=== PATIENT | male | born 1960 | race Hispanic/Latino ===

== ENCOUNTER 2021-06-16 06:35 | Day surgery (SDC) | payer OTHER ==
[~2021-06-16 06:35] MED LIST: ASPIRIN LOW81 M1 PO; FARXIGA5 MG PO; FISH OIL1000 MG PO; JARDIANCE10 MG PO; LISINOPRIL5 MG PO; METFORMIN500 M2 PO; VITAMIN D31000 UNI1 PO
[2021-06-16 10:13] VITALS: BP 140/78
[2021-07-17] MEDS ORDERED: VITAMIN D325 MCG (13:31)
[2021-07-17] MEDS ORDERED: JARDIANCE10 MG PO (13:31)
== END 2021-06-16 10:25 | disposition home or self-care (01) | DRG 724 ==
LOC: ORM 06:35
PROVIDERS: ATTEND Urology
PROC: 0VB03ZX Excision of Prostate, Percutaneous Approach, Diagnostic (ICD-10-PCS; principal; 2021-06-16)
PROC: BV49ZZZ Ultrasonography of Prostate and Seminal Vesicles (ICD-10-PCS; 2021-06-16)
DX: C61 Malignant neoplasm of prostate (principal); I10 Essential (primary) hypertension; E11.9 Type 2 diabetes mellitus without complications; E78.5 Hyperlipidemia, unspecified; K21.9 Gastro-esophageal reflux disease without esophagitis; Z79.84 Long term (current) use of oral hypoglycemic drugs; Z87.891 Personal history of nicotine dependence

== ENCOUNTER 2021-07-25 10:23 | Day surgery (SDC) | payer OTHER ==
[~2021-07-25 10:23] MED LIST changes: +VITAMIN D325 MCG
[2021-07-25 13:13] VITALS: BP 143/68
--- NOTE | 2021-08-01 15:14 | NUR ---
PER PHYSICIAN, NOTIFIED PATIENT OF COLONOSCOPY RESULTS. RECOMMENDED REPEAT COLONOSCOPY X 10 YEARS. PATIENT VERBALIZED UNDERSTADING OF INFORMATION PROVIDED. NOTE AND RESULTS FORWARDED TO PCP FOR CONTINUITY OF CARE.
== END 2021-07-25 13:10 | disposition home or self-care (01) | DRG 951 ==
LOC: ENDO 10:23
PROVIDERS: ATTEND Surgery
PROC: 0DBL8ZX Excision of Transverse Colon, Via Natural or Artificial Opening Endoscopic, Diagnostic (ICD-10-PCS; principal; 2021-07-25)
DX: Z12.11 Encounter for screening for malignant neoplasm of colon (principal); K63.5 Polyp of colon; C61 Malignant neoplasm of prostate; I10 Essential (primary) hypertension; E11.9 Type 2 diabetes mellitus without complications; Z79.84 Long term (current) use of oral hypoglycemic drugs